=== PATIENT | female | born 1995 | race Two or more races ===

== ENCOUNTER 2021-05-19 14:35 | Emergency (ER) | payer OTHER ==
[~2021-05-19] VITALS: Ht 162.6 cm; Wt 72.6 kg
== END 2021-05-19 19:29 | disposition home or self-care (01) ==
LOC: ER 14:35
DX: O26.851 Spotting complicating pregnancy, first trimester (principal); O02.81 Inappropriate change in quantitative human chorionic gonadotropin (hCG) in early pregnancy; O30.001 Twin pregnancy, unspecified number of placenta and unspecified number of amniotic sacs, first trimester; O41.8X10 Other specified disorders of amniotic fluid and membranes, first trimester, not applicable or unspecified; Z3A.01 Less than 8 weeks gestation of pregnancy

== ENCOUNTER 2021-09-24 09:12 | Emergency (ER) | payer OTHER ==
[~2021-09-24] VITALS: Ht 162.6 cm; Wt 74.8 kg
== END 2021-09-24 11:48 | disposition home or self-care (01) ==
LOC: ER 09:12
DX: Z34.01 Encounter for supervision of normal first pregnancy, first trimester (principal); Z3A.08 8 weeks gestation of pregnancy; K05.219 Aggressive periodontitis, localized, unspecified severity

== ENCOUNTER 2021-10-02 05:07 | Day surgery (SDC) | payer OTHER | END 2021-10-02 15:52 | disposition home or self-care (01) | LOC: CIR.AMB 05:07 | PROVIDERS: ATTEND Obstetrics & Gynecology | DX: O02.1 Missed abortion (principal) ==